=== PATIENT | male | born 1990 | race Caucasian/White ===

== ENCOUNTER 2020-05-12 21:29 | Emergency (ER) | payer SELFPAY ==
[~2020-05-12] VITALS: Ht 175.3 cm; Wt 74.8 kg
[2020-05-12 21:37] VITALS: BP 154/100
--- NOTE | 2020-05-12 21:42 | NUR ---
PT AMBULATED TO BED 7 WITH STEADY GAIT
--- NOTE | 2020-05-12 21:45 | NUR ---
PT PROVIDED URINE SAMPLE
--- NOTE | 2020-05-12 21:50 | NUR ---
29 Y/ MALE PRESENTED TO ED C/O LLQ ABD PAIN THAT RADIATES TO LEFT FLAK AND LEFT TESTICLE. PT STATES THE PAIN STARTED THIS MOMENT , RATES PAIN 9/10 CRAMPING. + N/V X 2 EPISODES. PT C/O DIFFICULTY URINATING AND CONSTANTLY FEELING LIKE HE HAS TO GO . ABD FLAT, SOFT AND TENDER TO LLQ. NORMOACTIVE BOWEL SOUNDS. OBSERVED LT TESTICLE W/ DR. KNOTT AT BEDSIDE. NO SWELLING OR REDNESS NOTED, PT C/O OF TENDERNESS UPON PALPATION OF LT TESTICLE. A/O X 4 , RR EVEN AND UNLABORED, VSS. PT RESTING IN BED, LOCKED AND IN LOWEST POSITION, HOB ELEVATED, SIDE RAIL X2 FOR PT SAFETY. PT PLACED IN GOWN FOR CT. PMH: VERONICAIES CLARISSA
[2020-05-12] MEDS ORDERED: ONDANSETRON 4 MG/2 ML VIAL IVP ONE (21:55)
[2020-05-12] MEDS ORDERED: KETOROLAC 15 MG/ML VIAL IVP ONE (21:55)
[2020-05-12] MEDS ORDERED: NACL 0.9% 1,000 ML IV ONE (21:55)
--- NOTE | 2020-05-12 22:08 | NUR ---
PT TAKEN TO CT VIA W/C
--- NOTE | 2020-05-12 22:17 | NUR ---
PT RETURNED FROM CT VIA W/C
--- NOTE | 2020-05-12 22:20 | NUR ---
20 G IV CATH INSERTED ON LT A/C , FLUSHED W/ 10 CC NS . IV SITE , PATENT , NO REDNESS, SWELLING OR PAIN NOTED AT IV SITE.
--- NOTE | 2020-05-12 22:20 | NUR ---
LABS COLLECTED AND WALKED TO LAB.
[2020-05-12 22:42] LABS: BASOPHILS % (AUTO) 0.3 % (0.0-2.0); EOSINOPHILS # (AUTO) 0.1 K/uL (0-0.4); EOSINOPHILS % (AUTO) 0.3 % (0.0-4.0); HEMATOCRIT 42.4 % (36-52); LYMPHOCYTES # (AUTO) 2.3 K/uL (2.0-11.5); LYMPHOCYTES % (AUTO) 13.4 % (20.5-51.1); MEAN CORPUSCULAR HEMOGLOBIN 29 pg (27-31); MEAN CORPUSCULAR HGB CONC 33 g/dL (33-37); MEAN CORPUSCULAR VOLUME 87.9 fL (80-94); MONOCYTES # (AUTO) 1.2 K/uL (0.8-1.0); NEUTROPHILS # (AUTO) 13.4 K/uL (1.8-7.7); PLATELET COUNT (AUTO) 351 K/uL (140-450); RED BLOOD CELL COUNT(AUTO) 4.83 MIL/uL (4.20-6.10); RED CELL DISTRIBUTION WIDTH 12.6 % (11.6-13.7)
--- NOTE | 2020-05-12 22:47 | NUR ---
PT RESTING IN BED, LOCKED AND IN LOWEST POSITION, HOB ELEVATED, SIDE RAIL X 2 FOR PT SAFETY. VISIBLE RISE AND FALL OF CHEST, RR EVEN AND UNLABORED. PT STATES MEDICATION HAS HELPED W/ PAIN , CURRENTLY RATES PAIN 04/06.
[2020-05-12 23:15] LABS: ALBUMIN 4.4 g/dL (3.4-5.0); ANION GAP 20.6 (8-16); CARBON DIOXIDE 21.8 mmol/L (21-32); CREATININE 1.5 mg/dL (0.6-1.3); POTASSIUM 3.4 mmol/L (3.5-5.1); TOTAL BILIRUBIN 0.3 mg/dL (0.0-1.0)
[2020-05-12 23:43] LABS: APPEARANCE,URINE CLEAR (CLEAR); BILIRUBIN,URINE NEGATIVE (NEGATIVE); BLOOD, URINE 3+ (NEGATIVE); COLOR,URINE YELLOW (YELLOW); LEUKOCYTE ESTERASE ,URINE NEGATIVE (NEGATIVE); NITRITE, URINE NEGATIVE (NEGATIVE); PH,URINE 5.5 (5.0-9.0); UGLUCOSE NEGATIVE (NEGATIVE)
[2020-05-12 23:56] LABS: CALCIUM OXALATE CRYSTALS,UR 0-2 /HPF (None Seen); RBC,URINE 20-50 /HPF (0-5); WBC,URINE 0-5 /HPF (0-5)
[2020-05-13 00:21] VITALS: BP 145/85
--- NOTE | 2020-05-13 00:21 | NUR ---
IV removed, catheter intact and site benign. Applied folded 4x4 gauze and tape to stop bleeding.
--- NOTE | 2020-05-13 00:22 | NUR ---
Patient discharged with v/s stable. Written and verbal after care instructions given and explained. Patient alert, oriented and verbalized understanding of instructions. Ambulatory with steady gait. All questions addressed prior to discharge. ID band removed. Patient advised to follow up with PMD. Rx of IBUPROFEN AND FLOMAX given. Patient educated on indication of medication including possible reaction and side effects. Opportunity to ask questions provided and answered.
[2020-05-15 06:08] LABS: CHLAMYDIA TRACHOMATIS AMP DNA Negative (Negative)
== END 2020-05-13 00:21 | disposition home or self-care (01) ==
LOC: MED 21:29
DX: N20.1 Calculus of ureter (principal)
CPT/HCPCS: 36415; 74176; 80053; 81001; 85025; 96361; 96374; 96375; 99284; J1885; J2405; J7030; 87491